=== PATIENT | female | born 1995 | race Two or more races ===

== ENCOUNTER 2023-09-25 19:50 | Emergency (ER) | payer BC ==
[2023-09-25] MEDS ORDERED: Aspirin 81 MG Tab.Chew PO ONE (20:14)
[2023-09-25 20:39] LABS: BASOPHILS PERCENT AUTO 0.3 % (0.0-1.0); EOSINOPHILS PERCENT AUTO 0.4 % (0.0-6.0); HEMATOCRIT 38.1 % (37.0-47.0); HEMOGLOBIN 12.7 gm/dl (12.0-16.0); IMMATURE GRAN ABSOLUTE AUTO 0.04 K/mm3 (0.00-0.05); IMMATURE GRAN PERCENT AUTO 0.4 % (0.0-0.4); LYMPHOCYTES ABSOLUTE AUTO 2.6 K/mm3 (1.0-4.8); LYMPHOCYTES PERCENT AUTO 23.5 % (24.0-44.0); MEAN CORPUSCULAR HEMOGLOBIN 28.5 pg (28.0-32.0); MEAN CORPUSCULAR HGB CONC 33.3 g/dl (32.0-36.0); MEAN CORPUSCULAR VOLUME 85.4 fl (83.0-99.0); MEAN PLATELET VOLUME 9.6 fl (9.4-12.3); MONOCYTES ABSOLUTE AUTO 0.5 K/mm3 (0.0-0.8); MONOCYTES PERCENT AUTO 4.6 % (0.0-8.0); NEUTROPHILS PERCENT AUTO 70.8 % (41.0-71.0); PLATELET COUNT,PLT 306 K/mm3 (150-400); RED BLOOD CELL COUNT 4.46 M/mm3 (4.10-5.30)
[2023-09-25 21:09] LABS: ALBUMIN 4.1 g/dl (3.4-5.0); ANION GAP 15.6 (5-15); BILIRUBIN TOTAL 0.5 mg/dL (0.2-1.0); BUN/CREATININE RATIO 11.3 (14-18); CALCIUM 9.2 mg/dL (8.5-10.1); CREATININE 0.8 mg/dL (0.55-1.02); EST CRCL DRUG DOSING (CG) 92.02 mL/min; POTASSIUM,K 3.6 mEq/L (3.5-5.1); PROTEIN TOTAL,TP 8.2 g/dl (6.4-8.2)
== END 2023-09-25 21:42 | disposition home or self-care (01) ==
LOC: JD.ED 19:50
DX: R07.89 Other chest pain (principal)
CPT/HCPCS: 36415; 71046; 80053; 84484; 85025; 85379; 93005; 99285; A9270; 93010; 99284

== ENCOUNTER 2024-08-19 18:32 | Inpatient (IN) | payer BC ==
[2024-08-19] MEDS ORDERED: Lidocaine 1% 50 ML MDV INJECT PRN (18:49)
[2024-08-19] MEDS ORDERED: Calcium Carbonate 500 MG Tab.Chew PO PRN (18:49)
[2024-08-19] MEDS ORDERED: Sodium Chloride 0.9% 10 ML Syringe FLUSH PRN (18:49)
[2024-08-19] MEDS ORDERED: Nalbuphine 10 MG/1 ML Vial IVPUSH PRN (18:49)
[2024-08-19] MEDS ORDERED: Ondansetron 4 MG/2 ML SDV IVPUSH PRN (18:49)
[2024-08-19] MEDS ORDERED: Oxytocin/0.9 % Sodium Chloride 30 UNIT/500 ML BAG IV SCH (19:00)
[2024-08-19 19:33] LABS: BASOPHILS PERCENT AUTO 0.1 % (0.0-1.0); EOSINOPHILS PERCENT AUTO 0.2 % (0.0-6.0); HEMATOCRIT 32.1 % (37.0-47.0); HEMOGLOBIN 10.2 gm/dl (12.0-16.0); IMMATURE GRAN ABSOLUTE AUTO 0.05 K/mm3 (0.00-0.05); IMMATURE GRAN PERCENT AUTO 0.5 % (0.0-0.4); LYMPHOCYTES PERCENT AUTO 21.4 % (24.0-44.0); MEAN CORPUSCULAR HEMOGLOBIN 24.1 pg (28.0-32.0); MEAN CORPUSCULAR HGB CONC 31.8 g/dl (32.0-36.0); MEAN CORPUSCULAR VOLUME 75.7 fl (83.0-99.0); MEAN PLATELET VOLUME 10.7 fl (9.4-12.3); MONOCYTES ABSOLUTE AUTO 0.6 K/mm3 (0.0-0.8); MONOCYTES PERCENT AUTO 5.9 % (0.0-8.0); NEUTROPHILS ABSOLUTE AUTO 6.7 K/mm3 (1.8-7.7); NEUTROPHILS PERCENT AUTO 71.9 % (41.0-71.0); PLATELET COUNT,PLT 229 K/mm3 (150-400); RED BLOOD CELL COUNT 4.24 M/mm3 (4.10-5.30); WHITE BLOOD CELL COUNT,WBC 9.34 K/mm3 (3.9-11.3)
[2024-08-19] MEDS: Lactated Ringers 1,000 ML IV SCH (20:26)
[2024-08-19] MEDS: Oxytocin/0.9 % Sodium Chloride 30 UNIT/500 ML BAG IV SCH (20:30)
[2024-08-19 20:54] LABS: CREATININE 0.9 mg/dL (0.55-1.02); EST CRCL DRUG DOSING (CG) 81.08 mL/min; URIC ACID 5.8 mg/dL (2.6-6.0)
[2024-08-19 22:23] LABS: CREATININE,URINE RAND 285.9 mg/dL (30.0-125.0); PROTEIN CREATININE RATIO,URINE 552.3 mg/g (0-149); PROTEIN,URINE RANDOM 157.9 mg/dL (0.0-11.8)
[2024-08-20] MEDS ORDERED: fentaNYL 100 MCG/2 ML SDV EPIDUR PRN ×2 (04:18→12:07)
[2024-08-20] MEDS ORDERED: diphenhydrAMINE 50 MG/ML SDV IVPUSH PRN ×4 (04:18→21:08)
[2024-08-20] MEDS ORDERED: ePHEDrine 50 MG/ML SDV IVPUSH PRN ×4 (04:18→22:31)
[2024-08-20] MEDS ORDERED: Bupivacaine/fentaNYL/NS 100 ML Bag EPIDUR PRN (12:26)
[2024-08-20] MEDS: Bupivacaine/fentaNYL/NS 100 ML Bag EPIDUR PRN ×2 (12:33→18:58)
[2024-08-20] MEDS ORDERED: Lactated Ringers 1,000 ML ONE (19:39)
[2024-08-20] MEDS ORDERED: Ketorolac 30 MG/ML SDV ONE (19:39)
[2024-08-20] MEDS ORDERED: ceFAZolin 1 GM in Sodium Chloride 0.9% 50 ML IV ONE (19:39)
[2024-08-20] MEDS ORDERED: Ondansetron 4 MG/2 ML SDV ONE (19:39)
[2024-08-20] MEDS ORDERED: Morphine PF 10 MG/10 ML SDV ONE (19:39)
[2024-08-20] MEDS ORDERED: Sodium Chloride 0.9% 10 ML Syringe FLUSH PRN (19:39)
[2024-08-20] MEDS ORDERED: ceFAZolin 2 GM Vial ONE (19:40)
[2024-08-20] MEDS ORDERED: Lidocaine 2% with EPINEPHrine 1:200,000 20 ML SDV ONE (19:41)
[2024-08-20] MEDS ORDERED: fentaNYL 100 MCG/2 ML SDV ONE (19:41)
[2024-08-20] MEDS ORDERED: Sodium Bicarbonate 8.4% 50 MEQ/50 ML SDV ONE (19:41)
[2024-08-20] MEDS ORDERED: Lactated Ringers 1,000 ML IV SCH (19:45)
[2024-08-20] MEDS: Citric Acid/Sodium Citrate Solution 30 ML Cup PO ONE (19:48)
[2024-08-20] MEDS: Metoclopramide 10 MG/2 ML SDV IVPUSH ONE (19:48)
[2024-08-20] MEDS: Azithromycin 500 MG in Sodium Chloride 0.9% 250 ML IV ONE (19:49)
[2024-08-20] MEDS ORDERED: Bupivacaine 0.5% 30 ML SDV ONE (19:53)
[2024-08-20] MEDS ORDERED: Phenylephrine 1% 10 MG/ML SDV ONE (20:18)
[2024-08-20] MEDS ORDERED: Tranexamic Acid 1,000 MG/10 ML Vial ONE ×2 (20:19→20:22)
[2024-08-20] MEDS ORDERED: fentaNYL 100 MCG/2 ML SDV IVPUSH PRN (21:08)
[2024-08-20] MEDS ORDERED: Meperidine 50 MG/ML Vial IVPUSH PRN (21:08)
[2024-08-20] MEDS ORDERED: Naloxone 0.4 MG/ML SDV IVPUSH PRN (22:31)
[2024-08-20] MEDS ORDERED: Acetaminophen/oxyCODONE 325-5 MG Tab PO PRN (22:31)
[2024-08-20] MEDS: Dextrose 5%-Lactated Ringers 1,000 ML IV SCH (23:04)
[2024-08-21] MEDS: Ketorolac 30 MG/ML SDV IVPUSH SCH (01:44)
[2024-08-21] MEDS: Ondansetron 4 MG/2 ML SDV IVPUSH ONE (02:09)
[2024-08-21] MEDS: Ondansetron 4 MG/2 ML SDV IVPUSH PRN ×2 (02:10→07:51)
[2024-08-21] MEDS: Lactated Ringers 1,000 ML IV SCH (04:37)
[2024-08-21 04:48] LABS: BASOPHILS PERCENT AUTO 0.2 % (0.0-1.0); EOSINOPHILS PERCENT AUTO 0.1 % (0.0-6.0); HEMATOCRIT 25.7 % (37.0-47.0); HEMOGLOBIN 8.1 gm/dl (12.0-16.0); IMMATURE GRAN PERCENT AUTO 0.6 % (0.0-0.4); LYMPHOCYTES ABSOLUTE AUTO 2.3 K/mm3 (1.0-4.8); LYMPHOCYTES PERCENT AUTO 13.3 % (24.0-44.0); MEAN CORPUSCULAR HEMOGLOBIN 24.1 pg (28.0-32.0); MEAN CORPUSCULAR HGB CONC 31.5 g/dl (32.0-36.0); MEAN CORPUSCULAR VOLUME 76.5 fl (83.0-99.0); MEAN PLATELET VOLUME 10.8 fl (9.4-12.3); MONOCYTES ABSOLUTE AUTO 1.1 K/mm3 (0.0-0.8); MONOCYTES PERCENT AUTO 6.2 % (0.0-8.0); NEUTROPHILS ABSOLUTE AUTO 13.8 K/mm3 (1.8-7.7); NEUTROPHILS PERCENT AUTO 79.6 % (41.0-71.0); PLATELET COUNT,PLT 159 K/mm3 (150-400); RED BLOOD CELL COUNT 3.36 M/mm3 (4.10-5.30); WHITE BLOOD CELL COUNT,WBC 17.33 K/mm3 (3.9-11.3)
[2024-08-21 05:19] LABS: INR 0.95; PROTHROMBIN TIME 10.1 SECONDS (9.7-12.0)
[2024-08-21] MEDS ORDERED: Ondansetron 4 MG/2 ML SDV IVPUSH PRN (07:55)
[2024-08-21] MEDS: diphenhydrAMINE 50 MG/ML SDV IVPUSH PRN (08:48)
[2024-08-21 11:59] LABS: BASOPHILS PERCENT AUTO 0.2 % (0.0-1.0); EOSINOPHILS PERCENT AUTO 0.1 % (0.0-6.0); HEMATOCRIT 24.2 % (37.0-47.0); HEMOGLOBIN 7.6 gm/dl (12.0-16.0); IMMATURE GRAN ABSOLUTE AUTO 0.08 K/mm3 (0.00-0.05); IMMATURE GRAN PERCENT AUTO 0.6 % (0.0-0.4); LYMPHOCYTES ABSOLUTE AUTO 1.7 K/mm3 (1.0-4.8); LYMPHOCYTES PERCENT AUTO 12.4 % (24.0-44.0); MEAN CORPUSCULAR HEMOGLOBIN 24.1 pg (28.0-32.0); MEAN CORPUSCULAR HGB CONC 31.4 g/dl (32.0-36.0); MEAN CORPUSCULAR VOLUME 76.6 fl (83.0-99.0); MEAN PLATELET VOLUME 10.6 fl (9.4-12.3); MONOCYTES ABSOLUTE AUTO 0.8 K/mm3 (0.0-0.8); MONOCYTES PERCENT AUTO 6.2 % (0.0-8.0); NEUTROPHILS ABSOLUTE AUTO 10.7 K/mm3 (1.8-7.7); NEUTROPHILS PERCENT AUTO 80.5 % (41.0-71.0); PLATELET COUNT,PLT 135 K/mm3 (150-400); RED BLOOD CELL COUNT 3.16 M/mm3 (4.10-5.30); WHITE BLOOD CELL COUNT,WBC 13.33 K/mm3 (3.9-11.3)
[2024-08-21 12:36] LABS: A/G RATIO 0.5 (1-2); ALBUMIN 1.8 g/dl (3.4-5.0); ANION GAP 11.8 (5-15); BILIRUBIN TOTAL 0.3 mg/dL (0.2-1.0); BUN/CREATININE RATIO 21.1 (14-18); CALCIUM 8.1 mg/dL (8.5-10.1); CREATININE 0.9 mg/dL (0.55-1.02); EST CRCL DRUG DOSING (CG) 81.08 mL/min; POTASSIUM,K 3.8 mEq/L (3.5-5.1); PROTEIN TOTAL,TP 5.3 g/dl (6.4-8.2)
[2024-08-21] MEDS: Lactated Ringers 1,000 ML IV ONE (14:01)
[2024-08-21] MEDS: Sodium Chloride 0.9% 10 ML Syringe FLUSH SCH (15:56)
[2024-08-21] MEDS: Sodium Chloride 0.9% 500 ML ONE (15:57)
[2024-08-21] MEDS: Azithromycin 500 MG Vial ONE (15:57)
[2024-08-21] MEDS: ceFAZolin 1 GM Vial IVPUSH ONE (15:57)
[2024-08-22] MEDS: Ibuprofen 600 MG Tab PO SCH ×3 (00:48→12:40)
[2024-08-22 05:43] LABS: HEMATOCRIT 21.2 % (37.0-47.0); MEAN CORPUSCULAR HEMOGLOBIN 23.9 pg (28.0-32.0); MEAN CORPUSCULAR HGB CONC 32.1 g/dl (32.0-36.0); MEAN CORPUSCULAR VOLUME 74.6 fl (83.0-99.0); MEAN PLATELET VOLUME 10.2 fl (9.4-12.3); PLATELET COUNT,PLT 130 K/mm3 (150-400); RED BLOOD CELL COUNT 2.84 M/mm3 (4.10-5.30); WHITE BLOOD CELL COUNT,WBC 9.45 K/mm3 (3.9-11.3)
[2024-08-22 05:47] LABS: HEMOGLOBIN 6.8 gm/dl (12.0-16.0)
[2024-08-22] MEDS: diphenhydrAMINE 50 MG/ML SDV IV ONE (11:46)
[2024-08-22] MEDS: Sodium Chloride 0.9% 250 ML IV SCH (11:56)
[2024-08-22] MEDS: Acetaminophen/oxyCODONE 325-5 MG Tab PO PRN (17:23)
[2024-08-22 20:11] LABS: BASOPHILS PERCENT AUTO 0.2 % (0.0-1.0); EOSINOPHILS ABSOLUTE AUTO 0.2 K/mm3 (0.0-0.4); HEMATOCRIT 27.2 % (37.0-47.0); IMMATURE GRAN ABSOLUTE AUTO 0.08 K/mm3 (0.00-0.05); IMMATURE GRAN PERCENT AUTO 0.8 % (0.0-0.4); LYMPHOCYTES ABSOLUTE AUTO 1.7 K/mm3 (1.0-4.8); LYMPHOCYTES PERCENT AUTO 17.9 % (24.0-44.0); MEAN PLATELET VOLUME 10.2 fl (9.4-12.3); MONOCYTES ABSOLUTE AUTO 0.5 K/mm3 (0.0-0.8); MONOCYTES PERCENT AUTO 5.5 % (0.0-8.0); NEUTROPHILS ABSOLUTE AUTO 7.1 K/mm3 (1.8-7.7); NEUTROPHILS PERCENT AUTO 73.6 % (41.0-71.0); PLATELET COUNT,PLT 156 K/mm3 (150-400); RED BLOOD CELL COUNT 3.48 M/mm3 (4.10-5.30)
[2024-08-22 20:14] LABS: HEMOGLOBIN 8.7 gm/dl (12.0-16.0); MEAN CORPUSCULAR VOLUME 78.2 fl (83.0-99.0)
[2024-08-22] MEDS: Acetaminophen 325 MG Tab PO PRN (21:48)
[2024-08-23] MEDS ORDERED: Calcium Gluconate 10% 1 GM/10 ML SDV IV PRN (11:31)
[2024-08-23] MEDS: Labetalol 100 MG/20 ML MDV IVPUSH ONE (11:40)
[2024-08-23] MEDS: Magnesium Sulfate/Water Premix 4 GM in Premix Bag 1 BAG IV ONE (12:09)
[2024-08-23] MEDS ORDERED: Magnesium Sulfate/Water Premix 50 ML IV ONE (12:20)
[2024-08-23] MEDS ORDERED: Docusate Sodium 100 MG Cap PO PRN (12:22)
[2024-08-23] MEDS: MAGNESIUM SULFATE IV ONE (12:32)
[2024-08-23] MEDS: WATER IV ONE (12:32)
[2024-08-23] MEDS: Magnesium Sulfate/Water Premix 2 GM in Premix Bag 1 BAG IV ONE (12:34)
[2024-08-23] MEDS: Magnesium Sulfate/Water Premix 40 GM/1,000 ML BAG IV SCH (12:51)
[2024-08-23] MEDS: NIFEdipine 30 MG Tab.ER PO SCH (14:14)
[2024-08-23 20:42] LABS: BASOPHILS PERCENT AUTO 0.2 % (0.0-1.0); EOSINOPHILS ABSOLUTE AUTO 0.3 K/mm3 (0.0-0.4); EOSINOPHILS PERCENT AUTO 3.5 % (0.0-6.0); HEMOGLOBIN 9.2 gm/dl (12.0-16.0); IMMATURE GRAN PERCENT AUTO 1.1 % (0.0-0.4); LYMPHOCYTES ABSOLUTE AUTO 1.5 K/mm3 (1.0-4.8); LYMPHOCYTES PERCENT AUTO 16.3 % (24.0-44.0); MEAN CORPUSCULAR HEMOGLOBIN 24.6 pg (28.0-32.0); MEAN CORPUSCULAR HGB CONC 31.7 g/dl (32.0-36.0); MEAN CORPUSCULAR VOLUME 77.5 fl (83.0-99.0); MEAN PLATELET VOLUME 9.6 fl (9.4-12.3); MONOCYTES ABSOLUTE AUTO 0.4 K/mm3 (0.0-0.8); MONOCYTES PERCENT AUTO 4.9 % (0.0-8.0); NEUTROPHILS ABSOLUTE AUTO 6.7 K/mm3 (1.8-7.7); NRBC ABSOLUTE 0.02 (0.00-0.02); NRBC PERCENT 0.2 % (0.0-0.2); PLATELET COUNT,PLT 222 K/mm3 (150-400); RED BLOOD CELL COUNT 3.74 M/mm3 (4.10-5.30); WHITE BLOOD CELL COUNT,WBC 9.02 K/mm3 (3.9-11.3)
[2024-08-23 21:02] LABS: A/G RATIO 0.6 (1-2); ALBUMIN 2.3 g/dl (3.4-5.0); ANION GAP 12.4 (5-15); BILIRUBIN TOTAL 0.2 mg/dL (0.2-1.0); BUN/CREATININE RATIO 15.5 (14-18); CALCIUM 7.9 mg/dL (8.5-10.1); CREATININE 1.1 mg/dL (0.55-1.02); EST CRCL DRUG DOSING (CG) 66.34 mL/min; POTASSIUM,K 3.4 mEq/L (3.5-5.1); PROTEIN TOTAL,TP 6.4 g/dl (6.4-8.2)
[2024-08-23 21:11] LABS: MAGNESIUM 5.3 mg/dL (1.8-2.4)
[2024-08-24] MEDS ORDERED: fentaNYL 100 MCG/2 ML SDV EPIDUR PRN (07:00)
[2024-08-24] MEDS ORDERED: diphenhydrAMINE 50 MG/ML SDV IVPUSH PRN (07:00)
[2024-08-24] MEDS ORDERED: Bupivacaine/fentaNYL/NS 100 ML Bag EPIDUR PRN (07:00)
[2024-08-24] MEDS ORDERED: ePHEDrine 50 MG/ML SDV IVPUSH PRN (07:00)
== END 2024-08-24 18:30 | disposition home or self-care (01) | DRG 540 ==
LOC: JD.OB 18:32 → OBSVTOIN 08-20 20:19 → JD.OB 08-20 20:20
PROVIDERS: ADMIT Obstetrics & Gynecology; ATTEND Obstetrics & Gynecology
PROC: 3E0R3BZ Introduction of Anesthetic Agent into Spinal Canal, Percutaneous Approach (ICD-10-PCS; 2024-08-20)
PROC: 00HU33Z Insertion of Infusion Device into Spinal Canal, Percutaneous Approach (ICD-10-PCS; 2024-08-20)
PROC: 10D00Z1 Extraction of Products of Conception, Low, Open Approach (ICD-10-PCS; principal; 2024-08-20 19:00)
PROC: 30233N1 Transfusion of Nonautologous Red Blood Cells into Peripheral Vein, Percutaneous Approach (ICD-10-PCS; 2024-08-22)
DX: O14.14 Severe pre-eclampsia complicating childbirth (principal); D62 Acute posthemorrhagic anemia; O72.1 Other immediate postpartum hemorrhage; O62.1 Secondary uterine inertia; O66.5 Attempted application of vacuum extractor and forceps; O90.81 Anemia of the puerperium; O76 Abnormality in fetal heart rate and rhythm complicating labor and delivery; O99.344 Other mental disorders complicating childbirth; F41.9 Anxiety disorder, unspecified; F32.A Depression, unspecified; Z3A.40 40 weeks gestation of pregnancy; Z37.0 Single live birth
CPT/HCPCS: 01961; 36415; 36430; 51702; 59025; 80053; 82565; 82570; 83615; 83735; 84156; 84450; 84460; 84520; 84550; 85025; 85027; 85610; 85730; 86592; 86850; 86900; 86901; 86922; 99140; A9270-GY; J0456; J0665; J0690; J1200; J1885; J1920; J2274; J2371; J2405; J2765; J3010; J3475; J3490; J7050; J7120; J7121; J7999; P9016